=== PATIENT | female | born 1990 | race African-American/Black ===

== ENCOUNTER 2018-03-11 08:32 | Inpatient (IN) | payer OTHER ==
[~2018-03-11] VITALS: Ht 160 cm; Wt 80.7 kg
[~2018-03-11 08:32] MED LIST: HYDROXYZINE HCL25 M2 PO; REGLAN10 M1 PO
--- NOTE | 2018-03-11 08:46 | ED GENERAL ADULT ---
History of Present Illness General Chief Complaint: Nausea, Vomiting, Diarrhea Stated Complaint: INCREASED N AND V W/ PAIN SINCE SUNDAY Source: patient Exam Limitations: no limitations Vital Signs & Intake/Output Vital Signs & Intake/Output Vital Signs Date Time Temp Pulse Resp B/P B/P Pulse O2 O2 Flow FiO2 Mean Ox Delivery Rate 03/11 1836 98.0 76 18 138/70 98 Room Air 03/11 1712 98.2 66 16 110/51 98 Room Air 03/11 1337 98.5 56 16 109/44 99 Room Air 03/11 1121 98.5 56 18 97/47 99 Room Air 03/11 0840 97.4 88 20 109/67 98 Room Air Allergies Coded Allergies: No Known Allergies (12/20/15) Reconcile Medications Metoclopramide HCl (Reglan) 10 MG TABLET 1 TAB PO Q8 nausea and vomiting 30 minutes before meals and bedtime Triage Note: PT STATES SHE IS 7 WEEKS . PT C/O N/V WITH ABDOMINAL PAIN X 5 DAYS. HAS OB APPT TODAY AT NOON. SEEN HERE FOR SAME ON SUNDAY Triage Nurses Notes Reviewed? yes (OR) Onset: Abrupt Duration: day(s): Timing: recent history : Yes Patient currently breastfeeds: No HPI: 03/12/18 9:57 AM 28-year-old female presents to the emergency department with severe nausea and vomiting. The patient is currently 7 weeks . She's had several admissions to the emergency department for ongoing vomiting. It is been refractory to Reglan. She also admits to mild crampy pain. No fever, no dysuria. No vaginal bleeding. She is a 4 para 3. Past History Travel History Traveled to [place] past 21 day No Medical History Any Pertinent Medical History? see below for history Neurological: NONE EENT: NONE Cardiovascular: HEART MURMUR Respiratory: NONE Gastrointestinal: NONE Hepatic: NONE Renal: NONE Musculoskeletal: NONE Psychiatric: NONE Endocrine: NONE Surgical History Surgical History: non-contributory Psychosocial History What is your primary language Kuwaiti Tobacco Use: Never used ETOH Use: denies use Illicit Drug Use: denies illicit drug use Family History Hx Contributory? No Review of Systems Review of Systems Constitutional: Denies: fever. EENTM: Denies: visual changes. Respiratory: Denies: short of breath. Cardiovascular: Denies: chest pain. GI: Denies: abdominal pain. Genitourinary: Reports: no symptoms. Musculoskeletal: Reports: no symptoms. Skin: Denies: rash. Neurological/Psychological: Reports: no symptoms. Hematologic/Endocrine: Reports: no symptoms. Immunologic/Allergic: Reports: no symptoms. Physical Exam Physical Exam General Appearance: alert, awake, anxious, mild distress Head: atraumatic, normal appearance Eyes: Bilateral: normal appearance, PERRL, EOMI. Ears, Nose, Throat: normal ENT inspection, Dry mucous membranes Neck: normal inspection, supple Respiratory: normal breath sounds, chest non-tender, no respiratory distress Cardiovascular: regular rate/rhythm Peripheral Pulses: 4+ radial (R), 4+ radial (L) Gastrointestinal: soft, non-tender Back: normal range of motion Extremities: normal inspection, no edema Neurologic/Psych: no motor/sensory deficits, awake, alert, oriented x 3 Skin: intact, normal color, warm/dry Core Measures ACS in differential dx? No CVA/TIA Diagnosis: No Sepsis Present: No Sepsis Focused Exam Completed? No Progress Differential Diagnoses I considered the following diagnoses in my evaluation of the patient: [ Hyperemesis gravidarum, -related vomiting, gastroenteritis, gastritis, viral syndrome, cholecystitis.] Plan of Care: Orders Procedure Date/time Status Heart Healthy Diet 03/11 D Active Weight 03/11 1815 Complete Vital Signs 03/11 1815 Active Teach/Educate 03/11 1815 Active Pain Treatment and Response 03/11 1815 Active Nutritional Intake, Monitor 03/11 181 Active Isolation 03/11 181 Active Intake & Output 03/11 181 Active Patient Care Conference 03/11 181 Active Activity/Ambulation 03/11 181 Active ED Holding Orders 03/11 1510 Active Admit to inpatient 03/11 1510 Active Patient Data 03/11 1510 Active Vital Signs 03/11 1510 Active Code Status 03/11 1510 Active Intake & Output 03/11 0945 Active CULTURE,URINE 03/11 0914 Active URINALYSIS 03/11 0914 Complete COMPREHENSIVE METABOLIC PANEL 03/11 0914 Complete CBC WITHOUT DIFFERENTIAL 03/11 0914 Complete Current Medications Sig/Galina Start time Last Medication Dose Stop Time Status Admin Dextrose/Lactated 1,000 ML Q8H 03/11 1930 AC 03/11 Ringer's 1945 (D5W in Lactated Ringers) Metoclopramide HCl 10 MG Q6 03/11 1930 AC 03/11 (Reglan) 1944 Laboratory Tests 03/11/18 0940: Urinalysis LIGHT H, Urine Color YEL, Urine Clarity HAZY H, Urine pH 8.5 H, Ur Specific [place] 1.015, Urine Protein TRACE H, Urine Ketones >=80, Urine Nitrite NEG, Urine Bilirubin NEG, Urine Urobilinogen 0.2, Ur Leukocyte Esterase NEG, Ur Microscopic SEDIMENT EXAMINED, Urine RBC RARE, Urine WBC RARE, Ur Epithelial Cells MOD H, Urine Bacteria FEW H, Urine Mucus FEW, Urine Hemoglobin NEG, Urine Glucose NEG 03/11/18 0934: Anion Gap 14, Estimated GFR > 60, BUN/Creatinine Ratio 13.3, Glucose 94, Calcium 10.3 H, Total Bilirubin 0.6, AST 19, ALT 25, Alkaline Phosphatase 45, Total Protein 7.4, Albumin 4.3, Globulin 3.1, Albumin/Globulin Ratio 1.4, CBC w Diff NO MAN DIFF REQ, RBC 4.51, MCV 93.3, MCH 32.1 H, MCHC 34.4, RDW 13.1, MPV 8.9, Gran % 85.4 H, Lymphocytes % 9.8 L, Monocytes % 4.6, Eosinophils % 0, Basophils % 0.2, Absolute Granulocytes 10.9 H, Absolute Lymphocytes 1.3, Absolute Monocytes 0.6, Absolute Eosinophils 0, Absolute Basophils 0 Microbiology 03/11 0940 URINE ROUT: Urine Culture - RECD Initial ED EKG: none Departure Departure Disposition: STILL A PATIENT Condition: Stable Clinical Impression Primary Impression: Vomiting Departure Forms: Customer Survey General Discharge Information Admission Note Spoke With: Hema SUMMERS,Alvin Brown Documentation of Exam: Documentation of any treatments & extenuating circumstances including Concerns Regarding Discharge (functional status, medication knowledge or non-compliance, living conditions, etc.) that warrant an admission rather than observation: [The patient continues to have anorexia and dry heaves. She is unable to tolerate by mouth. She is failing outpatient antiemetics. This is her second visit to the ED she is therefore being admitted to the hospital for further care. She will be given IV fluids.] PATIENT: CHRISTIANO RICHTER PRESENT AGE: 28 PATIENT ACCOUNT NO: [id number] : 89 LOCATION: [facility] ORDERING PHYSICIAN: Franc No DO SERVICE DATE: 03/11/18 EXAM TYPE: US - US-TRANSVAGINAL EXAMINATION: ULTRASOUND OF THE PELVIS CLINICAL INFORMATION: 7 week patient with vomiting and pain. COMPARISON: Pelvic ultrasound dated 03/08/2018. TECHNIQUE: Transabdominal and transvaginal pelvic ultrasound. A transvaginal study was performed in addition to the transabdominal study which did not yield an adequate examination of the uterus and ovaries due to superimposed distended gas-filled loops of bowel. FINDINGS: Based on the previous exam, a 8 week 6 day gestation is expected with an estimated date of delivery of 10/15/2018. Uterus: The uterus is retroverted and again demonstrates an intrauterine gestational sac. The decidual reaction appears normal. No evidence of subchorionic hemorrhage is seen. Mean sac diameter measures 4.3 cm which equals 10 weeks and 1 day. A live pole is identified with a crown-rump length of 1.4 cm which equals 7 weeks and 6 days, which corresponds to a estimated date of delivery of 10/14/2018, which is similar to the originally obtained dates. Positive heartbeat of 159 bpm is seen. Normal yolk sac is visualized. No focal myometrial mass is seen. The cervical length is difficult to measure given the retroversion of the uterus, but appears normal, measuring approximately 4.3 cm longitudinally. Ovaries: The ovaries bilaterally are visualized and appear normal, with the right ovary measuring 2.3 x 1.0 x 1.4 cm (1.8 mL volume) and the left ovary measuring 3.1 x 1.8 x 1.2 cm (3.7 mL volume). There is a 1.6 x 1.5 x 1.2 cm mass with low-level internal echoes and peripheral vascular flow, likely representing a corpus luteum cyst. No suspicious adnexal mass seen. Other: No adnexal mass or significant free fluid collection seen. IMPRESSION: 1. Single live intrauterine gestation is identified with a positive heartbeat of 159 bpm. Compared to the recent prior exam, adequate interval growth is seen. 2. Ovaries bilaterally appear normal with a probable corpus luteum cyst incidentally seen in the left ovary. DICTATED BY: Yahaira Lehman MD DATE/TIME DICTATED:03/11/181142 HAT RENOVATOR:NIRU DATE/TIME TRANSCRIBED:07/30/18 / 1143 CONFIDENTIAL, DO NOT COPY WITHOUT APPROPRIATE AUTHORIZATION. <Electronically signed in Other Vendor System> SIGNED BY: Dominik SUMMERS,Yahaira Uribe [id number] Critical Care Note Critical Care Note Critical Care Time: non-applicable
[2018-03-11 09:45] LABS: ABSOLUTE BASOPHIL COUNT 0 /CUMM (0.0-0.2); ABSOLUTE EOSINOPHIL COUNT 0 /CUMM (0.0-0.7); ABSOLUTE GRANULOCYTE CT 10.9 /CUMM (1.4-6.5); ABSOLUTE LYMPH COUNT 1.3 /CUMM (1.2-3.4); ABSOLUTE MONOCYTE COUNT 0.6 /CUMM (0.10-0.60); BASOPHIL % 0.2 % (0.0-2.0); EOSINOPHIL % 0 % (0-5); HEMATOCRIT 42.1 % (37-47); MEAN CORPUSCULAR HGB 32.1 PG (27.0-31.0); MEAN CORPUSCULAR HGB CONC 34.4 G/DL (33.0-37.0); MEAN CORPUSCULAR VOLUME 93.3 FL (81.0-99.0); MEAN PLATELET VOLUME 8.9 FL (7.4-10.4); PLATELET COUNT 278 /CUMM (130-400); RBC DISTRIBUTION WIDTH 13.1 % (11.5-14.5); RED BLOOD CELL CT 4.51 /CUMM (4.20-5.40); WHITE BLOOD CELL COUNT 12.8 /CUMM (4.8-10.8)
[2018-03-11 09:59] LABS: GRANULOCYTE % 85.4 % (42.2-75.2)
--- NOTE | 2018-03-11 11:59 | ULTRASOUND REPORT ---
EXAMINATION: ULTRASOUND OF THE PELVIS CLINICAL INFORMATION: 7 week patient with vomiting and pain. COMPARISON: Pelvic ultrasound dated 03/08/2018. TECHNIQUE: Transabdominal and transvaginal pelvic ultrasound. A transvaginal study was performed in addition to the transabdominal study which did not yield an adequate examination of the uterus and ovaries due to superimposed distended gas-filled loops of bowel. FINDINGS: Based on the previous exam, a 8 week 6 day gestation is expected with an estimated date of delivery of 10/15/2018. Uterus: The uterus is retroverted and again demonstrates an intrauterine gestational sac. The decidual reaction appears normal. No evidence of subchorionic hemorrhage is seen. Mean sac diameter measures 4.3 cm which equals 10 weeks and 1 day. A live pole is identified with a crown-rump length of 1.4 cm which equals 7 weeks and 6 days, which corresponds to a estimated date of delivery of 10/14/2018, which is similar to the originally obtained dates. Positive heartbeat of 159 bpm is seen. Normal yolk sac is visualized. No focal myometrial mass is seen. The cervical length is difficult to measure given the retroversion of the uterus, but appears normal, measuring approximately 4.3 cm longitudinally. Ovaries: The ovaries bilaterally are visualized and appear normal, with the right ovary measuring 2.3 x 1.0 x 1.4 cm (1.8 mL volume) and the left ovary measuring 3.1 x 1.8 x 1.2 cm (3.7 mL volume). There is a 1.6 x 1.5 x 1.2 cm mass with low-level internal echoes and peripheral vascular flow, likely representing a corpus luteum cyst. No suspicious adnexal mass seen. Other: No adnexal mass or significant free fluid collection seen. IMPRESSION: 1. Single live intrauterine gestation is identified with a positive heartbeat of 159 bpm. Compared to the recent prior exam, adequate interval growth is seen. 2. Ovaries bilaterally appear normal with a probable corpus luteum cyst incidentally seen in the left ovary.
[2018-03-11 18:36] VITALS: BP 138/70
--- NOTE | 2018-03-11 19:43 | History & Physical ---
General Information and HPI MD Statement: I have seen and personally examined CHRISTIANO RICHTER and documented this H&P. The patient is a 28 year old female at 7 weeks and days gestation who presented with a chief complaint of NAUSEA AND VOMITING. Source of Information: patient Exam Limitations: no limitations History of Present Illness: PT HAS BEEN VOMITING FOR 5 DAYS SEEN IN ER sunday and again today treated with iv fluids and she states zofran didnt help dicleges didnt help but she thinks reglan helped but she still cant keep anything down. Allergies/Medications Allergies: Coded Allergies: No Known Allergies (12/20/15) Home Med list Metoclopramide HCl (Reglan) 10 MG TABLET 1 TAB PO Q8 nausea and vomiting 30 minutes before meals and bedtime Compliance With Home Meds: GOOD Past History edge cutter History : 3 Para: 2 Last Menstrual Period: unk Estimated Delivery Date: unk Past edge cutter History: none Medical History Blood Transfusion Hx: No Neurological: NONE EENT: NONE Cardiovascular: HEART MURMUR Respiratory: NONE Gastrointestinal: NONE Hepatic: NONE Renal: NONE Musculoskeletal: NONE Psychiatric: NONE Endocrine: NONE Cancer(s): NONE Surgical History Pertinent Surgical History: non-contributory Past Family/Social History Psychosocial History Where do you live? Home Smoking Status: Never Smoked ETOH Use: denies use Illicit Drug Use: denies illicit drug use Review of Systems Review of Systems Constitutional: Reports: malaise, weakness. Denies: chills, fever. EENTM: Denies: blurred vision, double vision, visual changes. Cardiovascular: Denies: chest pain. Respiratory: Denies: short of breath. GI: Reports: nausea, vomiting. Denies: diarrhea. Genitourinary: Denies: dysuria, frequency. Neurological/Psychological: Denies: anxiety, depressed. Hematologic/Endocrine: Denies: bleeding. Date of LMP: 02/17/18 Exam & Diagnostic Data Last 24 Hrs of Vital Signs/I&O Vital Signs Date Time Temp Pulse Resp B/P B/P Pulse O2 O2 Flow FiO2 Mean Ox Delivery Rate 03/11 1836 98.0 76 18 138/70 98 Room Air 03/11 1712 98.2 66 16 110/51 98 Room Air 03/11 1337 98.5 56 16 109/44 99 Room Air 03/11 1121 98.5 56 18 97/47 99 Room Air 03/11 0840 97.4 88 20 109/67 98 Room Air Intake & Output 03/11 1600 03/11 0800 03/11 0000 Intake Total Output Total Balance Patient 178 lb Weight Weight Reported by Patient Measurement Method Obstetric Exam Wgt Gained During : none Pelvimetry: n/a Dilation (cm): 0 Effacement (%): 0 Station: 0 Membranes: intact Fluid: unknown Fundal Height (cm): 7 Multiple Gestation? No Contractions: n/a #1 - FHR Baseline: 145 Category: 1 Estimated Weight: n/a Presentation: n/a Patient for Induction? No Physical Exam: lungs clear, cor rrr, abd soft no masses rebound guarding, back no cvat Physical Exam General Appearance Alert, Oriented X3, Cooperative, No Acute Distress Skin No Rashes HEENT Atraumatic Neck Supple Cardiovascular Regular Rate Lungs Clear to Auscultation Abdomen Soft, No Tenderness, No Hepatospenomegaly, No Masses Neurological Normal Gait, Normal Speech, Strength at 5/5 X4 Ext, Normal Tone Extremities No Edema Labs Blood Type & Rh: n/a Antibody Screen: n/a Hct/Hgb & Platelets #1: n/a Hct/Hgb & Platelets #2: n/a Rubella: n/a VDRL #1: n/a VDRL #2: n/a HbsAg: n/a HIV #1: n/a HIV #2 n/a 1 Hr PG: n/a 3 Hr PG: n/a Group B Strep: n/a Initial Ultrasound: n/a Anatomy Ultrasound: n/a Genetic Testing: n/a Last 24 Hrs of Labs/Marlon: Laboratory Tests 03/11/18 0940: Urinalysis LIGHT H, Urine Color YEL, Urine Clarity HAZY H, Urine pH 8.5 H, Ur Specific [place] 1.015, Urine Protein TRACE H, Urine Ketones >=80, Urine Nitrite NEG, Urine Bilirubin NEG, Urine Urobilinogen 0.2, Ur Leukocyte Esterase NEG, Ur Microscopic SEDIMENT EXAMINED, Urine RBC RARE, Urine WBC RARE, Ur Epithelial Cells MOD H, Urine Bacteria FEW H, Urine Mucus FEW, Urine Hemoglobin NEG, Urine Glucose NEG 03/11/18 0934: Anion Gap 14, Estimated GFR > 60, BUN/Creatinine Ratio 13.3, Glucose 94, Calcium 10.3 H, Total Bilirubin 0.6, AST 19, ALT 25, Alkaline Phosphatase 45, Total Protein 7.4, Albumin 4.3, Globulin 3.1, Albumin/Globulin Ratio 1.4, CBC w Diff NO MAN DIFF REQ, RBC 4.51, MCV 93.3, MCH 32.1 H, MCHC 34.4, RDW 13.1, MPV 8.9, Gran % 85.4 H, Lymphocytes % 9.8 L, Monocytes % 4.6, Eosinophils % 0, Basophils % 0.2, Absolute Granulocytes 10.9 H, Absolute Lymphocytes 1.3, Absolute Monocytes 0.6, Absolute Eosinophils 0, Absolute Basophils 0 Microbiology 03/11 0940 URINE ROUT: Urine Culture - RECD Assessment/Plan Assessment/Plan: nausea and vomiting of plan iv fluids and reglan home health iv support As Ranked By This Provider Problem List: 1. Hyperemesis Core Measures Venous Thromboembolism VTE Risk Factors / No Mechanical VTE Prophylaxis d/t LowRisk-No Interven Req'd No VTE Pharm Prophylaxis d/t LowRisk-No Interven Req'd Attending MD Review Statement Attending Statement Attending MD Statement: examined this patient, discussed w/nursing
[2018-03-11 23:35] VITALS: BP 100/50
[2018-03-12 07:56] VITALS: BP 122/76
--- NOTE | 2018-03-12 13:38 | PN- OBGYN ---
Surgical Brief Attending Note Brief Attending Note: PT HAS HOME HEALTH SET UP TO ADMINISTER HER iv AN D MEDS SO SHE WILL BE DISCHARGED HOME
== END 2018-03-12 14:45 | disposition home health service (06) | DRG 566 ==
LOC: ERH 08:32 → ERHI 15:10 → 2NB 15:10 → ENRESERV 16:17 → ENTRNSPT 17:29 → EDTRNSPT 17:53 → EDTRNSPTSTS 17:53 → 2NB 17:54 → CMPTRNSPT 17:57 → ENPENDDIS 03-12 13:40 → 2NB 03-12 14:45
PROVIDERS: Emergency Medicine
DX: O21.0 Mild hyperemesis gravidarum (principal); Z3A.01 Less than 8 weeks gestation of pregnancy
CPT/HCPCS: 2NBP; 81001; 87086; 96374; 96375; J2405; J2765; J3250